=== PATIENT | male | born 1980 | race Caucasian/White ===

== ENCOUNTER → 2017-08-26 | Outpatient (CLI) | payer OTHER ==
--- NOTE | 2017-08-26 13:14 | RADIOLOGY IMAGING REPORT ---
FACILITY: [facility] PATIENT NAME: Jose Rafael Cuba : 1980 MR: [id number] V: [id number] EXAM DATE: ORDERING PHYSICIAN: JOAN CANNON TECHNOLOGIST: Location: [facility] Patient: Jose Rafael Cuba : 1980 Visit/Account:[id number] Date of Sevice: 08/26/2017 Exam type: ANKLE 3 VIEW MIN RIGHT History: Right ankle sprain Comparison: None. Findings: There is mild soft tissues lung around the lateral malleolus. No acute fracture is seen. Ankle mort ise aligns appropriate. Hindfoot is unremarkable. Incidentally noted is a benign sclerotic focus along the lateral cortex of the distal right tibia. IMPRESSION: 1. Mild soft tissue swelling along the lateral malleolus but no acute fracture. Report Dictated By: Jim Augustine MD at 08/26/2017 1:07 PM Report E-Signed By: Jim Augustine MD at 08/26/2017 1:10 PM WSN:[id number]
== END ==
LOC: RAD 10:31
PROVIDERS: ATTEND Emergency Medicine Sports Medicine
DX: M79.89 Other specified soft tissue disorders (principal)